=== PATIENT | male | born 1995 | race Caucasian/White ===

== ENCOUNTER 2016-09-27 15:54 | Emergency (ER) | payer OTHER ==
[~2016-09-27] VITALS: Ht 175.3 cm; Wt 68.0 kg
[2016-09-27 15:57] VITALS: BP 170/100
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
[2016-09-27] MEDS ORDERED: KETOROLAC TROME10 M1 PO (16:44)
== END 2016-09-27 16:54 ==
LOC: ERH 15:54
DX: S39.012A Strain of muscle, fascia and tendon of lower back, initial encounter (principal); V49.40XA Driver injured in collision with unspecified motor vehicles in traffic accident, initial encounter
CPT/HCPCS: 96372; J1885